=== PATIENT | female | born 1980 | race Caucasian/White ===

== ENCOUNTER 2016-11-22 14:12 | Emergency (ER) | payer OTHER, BC ==
[~2016-11-22] VITALS: Ht 157.5 cm; Wt 63.6 kg
[~2016-11-22 14:12] MED LIST: ALLEGRA 180MG180 MG PO; AMOXICILLIN 8751 TAB PO; CALCIUM 500500 M2 PO; CEFTIN 250250 MG/TAB PO; CHANTIX 0.5MG0.5 MG PO; CIPRO 500MG TA500 MG PO; CLARITIN-D 10 M1 T24 PO; CLEOCIN HCL300 MG PO; DEPO-PROVER400 MG/ML IM; EPI-PEN1 MG/ML MR; FLAGYL500 MG PO; FLEXERIL; FLEXERIL 1010 MG/TAB PO; IBU-TAB800 MG PO; LEVAQUIN 5500 MG/TA1 PO; LEXAPRO20 MG PO; MAXALT5 MG PO; MEDROL 4MG DOSPA4 MG PO; MOTRIN 600600 MG/TAB PO; MOTRIN 800800 MG/TAB PO; MULTIPLE VITAMI1 CAP PO; NAPROSYN500 MG PO; NASONEX SPRAY17 GM NS; NO HOME MEDICATIONS; NORCO 325 MG-51 TAB PO; NORCO 325 MG-7.1 TAB PO; PERCOCET 325 MG1 TA2 PO; PHENERGAN 25 TA25 MG PO; PREDNISONE10 MG PO; PREDNISONE20 MG PO; PROVENTIL0.09 MG/A1 IH; PYRIDIUM 100MG100 MG PO; PYRIDIUM200 M1 PO; SEPTRA DS 8001 TAB PO; VALTREX1 GM PO; ZITHROMAX Z PA250 MG PO; ZOFRAN ODT8 MG PO
[2016-11-22 14:15] VITALS: BP 118/70; PULSE 80; TEMP 98.9
[2016-11-22] MEDS ORDERED: DOXYCYCLINE 10100 MG PO (14:58)
[2016-11-22] MEDS ORDERED: NORCO 325 MG-51 TAB PO (14:59)
== END 2016-11-22 15:20 | disposition home or self-care (01) ==
LOC: COL.ER 14:12
DX: S00.06XA Insect bite (nonvenomous) of scalp, initial encounter (principal); I88.8 Other nonspecific lymphadenitis; F17.210 Nicotine dependence, cigarettes, uncomplicated; Z98.51 Tubal ligation status; Z90.711 Acquired absence of uterus with remaining cervical stump; W57.XXXA Bitten or stung by nonvenomous insect and other nonvenomous arthropods, initial encounter

== ENCOUNTER 2017-10-06 16:51 | Emergency (ER) | payer BC ==
[~2017-10-06] VITALS: Ht 157.5 cm; Wt 67.0 kg
[~2017-10-06 16:51] MED LIST changes: +DOXYCYCLINE 10100 MG PO
[2017-10-06 16:58] VITALS: TEMP 98.1
[2017-10-06] MEDS ORDERED: NEURONTIN300 MG/CAP PO (17:24)
[2017-10-06] MEDS ORDERED: ZOLOFT 50MG50 MG PO (17:25)
[2017-10-06] MEDS ORDERED: FLEXERIL 1010 MG/TAB PO (17:26)
[2017-10-06] MEDS ORDERED: CHANTIX 0.5MG0.5 MG PO (17:26)
[2017-10-06] MEDS ORDERED: [UNRECOGNIZED DRUG - OTHER] (17:27)
[2017-10-06] MEDS ORDERED: ONE DAILY1 TA1 PO (17:28)
[2017-10-06 17:52] VITALS: BP 113/71
[2017-10-06 18:24] VITALS: PULSE 77
[2017-10-06] MEDS ORDERED: ATARAX 25MG25 MG/TAB PO (18:25)
== END 2017-10-06 18:24 | disposition home or self-care (01) ==
LOC: COL.ER 16:51
DX: F41.9 Anxiety disorder, unspecified (principal); F32.9 Major depressive disorder, single episode, unspecified; Z98.82 Breast implant status; Z98.51 Tubal ligation status
CPT/HCPCS: J2060

== ENCOUNTER → 2017-10-24 | Outpatient (CLI) | payer BC ==
[~2017-10-24] MED LIST changes: +ATARAX 25MG25 MG/TAB PO; +NEURONTIN300 MG/CAP PO; +ONE DAILY1 TA1 PO; +ZOLOFT 50MG50 MG PO; +[UNRECOGNIZED DRUG - OTHER]
== END ==
LOC: COL.LAB 10:15
DX: N39.0 Urinary tract infection, site not specified (principal)

== ENCOUNTER 2018-08-13 11:07 | Outpatient (RCR) | payer OTHER | END 2018-10-13 15:29 | disposition home or self-care (01) | LOC: WSOH 11:07 | DX: S60.222A Contusion of left hand, initial encounter (principal); S61.235A Puncture wound without foreign body of left ring finger without damage to nail, initial encounter; M79.642 Pain in left hand; S67.195A Crushing injury of left ring finger, initial encounter; W23.1XXA Caught, crushed, jammed, or pinched between stationary objects, initial encounter; Y93.01 Activity, walking, marching and hiking; Y99.0 Civilian activity done for income or pay ==

== ENCOUNTER → 2019-01-19 | Outpatient (CLI) | payer BC ==
[2019-01-19 10:19] LABS: BASO # 0.1 (0.0-0.2); BASO % 0.6 % (0.0-2.0); EOS # 0.1 (0.0-0.7); EOS % 0.9 % (0-4.0); GRAN # 6.6 (1.4-6.5); GRAN % 74.5 % (42.2-75.2); HEMATOCRIT 42.5 % (37.0-47.0); HEMOGLOBIN 14.3 g/dl (12.5-16.0); LYMPH # 1.6 (1.2-3.4); LYMPH % 17.5 % (20.0-51.0); MEAN CELL VOLUME 88 fl (80.0-100.0); MEAN CORPUSCULAR HEMOGLOBIN 30 pg (27.0-31.0); MEAN CORPUSCULAR HGB CONC 34 g/dl (33.0-37.0); MEAN PLATELET VOLUME 10.1 fl (7.4-10.4); MONO # 0.5 (0.1-0.6); PLATELET COUNT 300 K/mm3 (130-400); RED BLOOD COUNT 4.81 M/mm3 (4.10-5.30); REDCELL DISTRIBUTION WIDTH-CV 12.5 % (11.5-14.5)
[2019-01-19 10:35] LABS: ALBUMIN 4.7 gm/dL (3.5-5.0); BILIRUBIN,TOTAL 0.4 mg/dL (0.0-1.0); CALCIUM 9.5 mg/dL (8.4-10.2); CREATININE, serum 0.7 (0.52-1.25); POTASSIUM 4.1 mmol/L (3.4-5.0); TOTAL PROTEIN 8.1 gm/dL (6.4-8.2)
== END ==
LOC: COL.LAB 09:59
PROVIDERS: Family Medicine
DX: R10.9 Unspecified abdominal pain (principal)

== ENCOUNTER → 2019-01-19 | Outpatient (CLI) | payer BC | LOC: ZCOL.LAB 12:17 | DX: R30.0 Dysuria (principal) ==

== ENCOUNTER → 2019-01-27 | Outpatient (CLI) | payer BC | LOC: ZCOL.LAB 16:37 | DX: R30.0 Dysuria (principal) ==

== ENCOUNTER 2020-09-01 10:20 | Emergency (ER) | payer BC ==
[~2020-09-01] VITALS: Ht 160 cm; Wt 65.9 kg
[2020-09-01 11:31] LABS: BASO % 0.8 % (0.0-2.0); EOS # 0.1 (0.0-0.7); EOS % 2.5 % (0-4.0); GRAN # 2.9 (1.4-6.5); GRAN % 55.6 % (42.2-75.2); HEMATOCRIT 43.1 % (37.0-47.0); HEMOGLOBIN 14.1 g/dl (12.5-16.0); LYMPH # 1.7 (1.2-3.4); MEAN CELL VOLUME 93 fl (80.0-100.0); MEAN CORPUSCULAR HEMOGLOBIN 30 pg (27.0-31.0); MEAN CORPUSCULAR HGB CONC 33 g/dl (33.0-37.0); MEAN PLATELET VOLUME 10.1 fl (7.4-10.4); MONO # 0.4 (0.1-0.6); MONO % 8.1 % (1.7-9.3); PLATELET COUNT 315 K/mm3 (130-400); RED BLOOD COUNT 4.65 M/mm3 (4.10-5.30)
[2020-09-01] MEDS ORDERED: WELLBUTRIN 75MG75 MG PO (11:38)
[2020-09-01] MEDS ORDERED: VIVLODEX5 MG PO (11:39)
[2020-09-01] MEDS ORDERED: DESYREL 50MG50 MG PO (11:39)
[2020-09-01] MEDS ORDERED: TOPAMAX 100MG100 M1 PO (11:40)
[2020-09-01 11:44] LABS: ALANINE AMINOTRANSFERASE 33 U/L (4-34); ALBUMIN 4.5 gm/dL (3.5-5.0); ALKALINE PHOSPHATASE 51 U/L (50-136); ANION GAP 9 mmol/L (7-16); AST,SGOT 29 U/L (15-37); BILIRUBIN,TOTAL 0.2 mg/dL (0.0-1.0); BLOOD UREA NITROGEN 17 mg/dL (7-17); CALCIUM 9.5 mg/dL (8.4-10.2); CARBON DIOXIDE 26 mmol/L (22-30); CHLORIDE 104 mmol/L (98-107); CREATININE, serum 0.74 (0.52-1.25); GLUCOSE 83 mg/dL (74-106); POTASSIUM 4.4 mmol/L (3.4-5.0); SODIUM 139 mmol/L (137-145); TOTAL PROTEIN 8.6 gm/dL (6.4-8.2)
[2020-09-01 11:51] LABS: C-REACTIVE PROTEIN < 0.5 mg/dL (0.0-0.9)
[2020-09-01 12:59] VITALS: BP 103/68; PULSE 66; TEMP 98.1
[2020-09-01] MEDS ORDERED: NORCO 325 MG-51 TAB PO ×2 (12:59)
== END 2020-09-01 12:59 | disposition home or self-care (01) ==
LOC: COL.ER 10:20
PROVIDERS: Nurse Practitioner
DX: G43.909 Migraine, unspecified, not intractable, without status migrainosus (principal); F17.210 Nicotine dependence, cigarettes, uncomplicated; Z90.710 Acquired absence of both cervix and uterus; Z88.1 Allergy status to other antibiotic agents
CPT/HCPCS: J1200; J1885; J2765; J7030

== ENCOUNTER → 2022-10-02 | Outpatient (CLI) | payer BC ==
[~2022-10-02] MED LIST changes: +DESYREL 50MG50 MG PO; +TOPAMAX 100MG100 M1 PO; +VIVLODEX5 MG PO; +WELLBUTRIN 75MG75 MG PO
== END ==
LOC: MC.RAD 14:30
DX: Z12.31 Encounter for screening mammogram for malignant neoplasm of breast (principal); N63.20 Unspecified lump in the left breast, unspecified quadrant